=== PATIENT | female | born 1980 | race Asian ===

== ENCOUNTER 2017-03-11 17:01 | Inpatient (IN) | payer MEDICAID ==
[~2017-03-11 17:01] MED LIST: ATOR20TA86 PO; BENZ1TAB10 PO; FENO160 PO; LISI-661 PO; LURA40 PO; METF500T4 PO; SITA100 PO
[2017-03-11] MEDS ORDERED: QUEtiapine FUMARATE 100 MG TABLET PO PRN (17:45)
[2017-03-11] MEDS ORDERED: LORazepam 2 MG/ML VIAL IM ONE (17:45)
[2017-03-11] MEDS ORDERED: LORazepam 2 MG TABLET PO PRN (17:45)
[2017-03-11] MEDS ORDERED: ZOLPIDEM TARTRATE 10 MG TABLET PO PRN (17:45)
[2017-03-11] MEDS ORDERED: DiphenhydrAMINE HCL 50 MG/ML VIAL IM ONE (17:45)
[2017-03-11 18:30] VITALS: BP 114/66
[2017-03-11 20:00] VITALS: BP 100/64
[2017-03-11] MEDS ORDERED: PNEUMOCOCCAL VACCINE POLYVALENT 0.5 ML VIAL [PPSV23] IM ONE (20:00)
[2017-03-11] MEDS ORDERED: GLUCAGON,HUMAN RECOMBINANT 1 MG VIAL IM PRN (20:30)
[2017-03-11] MEDS ORDERED: INSULIN ASPART 100 UNITS/ML SQ PRN (20:30)
[2017-03-11] MEDS: QUEtiapine FUMARATE 200 MG TABLET PO SCH (21:00)
[2017-03-11 21:04] VITALS: BP 103/70
[2017-03-11 22:04] VITALS: BP 101/66
[2017-03-12] VITALS (11 sets, daily range): BP systolic 82–137; BP diastolic 42–92
[2017-03-12] MEDS ORDERED: INSNOV SQ (04:41)
[2017-03-12] MEDS ORDERED: QUET200T PO (04:41)
[2017-03-12] MEDS ORDERED: QUET50TA PO (04:41)
[2017-03-12 07:12] LABS: GLUCOSE,POINT OF CARE 378 MG/DL (70-110)
[2017-03-12] MEDS: MetFORMIN HCL 500 MG TABLET PO SCH ×2 (07:23→17:00)
[2017-03-12] MEDS: QUEtiapine FUMARATE 25 MG TABLET PO SCH ×2 (08:32→17:00)
[2017-03-12] MEDS: LISINOPRIL 10 MG TABLET PO SCH ×2 (08:32→17:00)
[2017-03-12] MEDS ORDERED: SitaGLIPtin PHOSPHATE 100 MG TABLET PO SCH (09:00)
[2017-03-12 13:28] LABS: HEMATOCRIT 33.8 % (36-46); HEMOGLOBIN 12.1 g/dL (12.0-16.0); MEAN CORPUSCULAR HGB CONC 35.9 G/dL (31.0-37.0); MEAN CORPUSCULAR VOLUME 84 fL (80-100); PLATELET COUNT (AUTO) 256 K/uL (150-450); RED BLOOD CELL COUNT(AUTO) 4.05 MIL/uL (4.00-5.20); RED CELL DISTRIBUTION WIDTH 13.5 % (11.5-14.5); WHITE BLOOD COUNT (AUTO) 8.3 K/uL (4.5-11.0)
[2017-03-12 13:47] LABS: ALBUMIN 3.1 g/dL (3.4-5.0); ANION GAP 13 mmol/L (8-16); BILIRUBIN,TOTAL 0.8 mg/dL (0.1-1.0); CALCIUM, TOTAL 8.1 mg/dL (8.8-10.5); CARBON DIOXIDE 23 mmol/L (22-29); CHLORIDE 93 mmol/L (98-107); GLOMERULAR FILTR. RATE CALC > 60 mL/min (>60); POTASSIUM 4.2 mmol/L (3.5-5.1); SODIUM SERUM 129 mmol/L (136-145); THYROID STIMULATING HORMONE 3.63 uIU/mL (0.36-3.74); UREA NITROGEN, BLOOD 18 mg/dL (7-18)
[2017-03-12 13:59] LABS: BAND NEUTROPHILS % (MANUAL) 5 % (1-5); LYMPHOCYTES % (MANUAL) 41 % (22-44); RBC MORPHOLOGY COMMENT NORMAL RBC MORPH; TOTAL CELLS COUNTED 100
[2017-03-12 14:13] LABS: CHOL/HDL RATIO 16.2 (3.9-5.7)
[2017-03-12 14:14] LABS: CREATININE 0.72 mg/dL (0.60-1.30); TOTAL PROTEIN, SERUM 8.1 g/dL (6.4-8.2)
[2017-03-12 14:37] LABS: ASPARTATE AMINOTRANSFERASE 145 U/L (15-37)
[2017-03-12 19:11] LABS: ALANINE AMINOTRANSFERASE 21 U/L (12-78)
[2017-03-12] MEDS ORDERED: FENOFIBRATE 160 MG TABLET PO SCH (21:00)
[2017-03-12] MEDS: QUEtiapine FUMARATE 200 MG TABLET PO SCH (21:00)
[2017-03-12] MEDS ORDERED: ATORVASTATIN CALCIUM 20 MG TABLET PO SCH (21:00)
== END 2017-03-12 21:58 | disposition short-term general hospital (02) | DRG 750 ==
LOC: B3A 17:49
PROVIDERS: ADMIT Psychiatry & Neurology Psychiatry; ATTEND Psychiatry & Neurology Psychiatry
DX: F25.0 Schizoaffective disorder, bipolar type (principal); E11.9 Type 2 diabetes mellitus without complications; I10 Essential (primary) hypertension; F39 Unspecified mood [affective] disorder; E78.1 Pure hyperglyceridemia; E78.5 Hyperlipidemia, unspecified; F79 Unspecified intellectual disabilities; Z91.19 Patient's noncompliance with other medical treatment and regimen; Z88.5 Allergy status to narcotic agent; Z79.899 Other long term (current) drug therapy; Z79.84 Long term (current) use of oral hypoglycemic drugs; Z23 Encounter for immunization
CPT/HCPCS: 82962; 83036; 84439; 84443; J1200; J2060; J3230

== ENCOUNTER 2017-03-12 04:08 | Emergency (ER) | payer MEDICAID, OTHER ==
[~2017-03-12] VITALS: Ht 149.9 cm; Wt 63.0 kg
[2017-03-12] MEDS ORDERED: QUET200T PO (04:41)
[2017-03-12] MEDS ORDERED: INSNOV SQ (04:41)
[2017-03-12] MEDS ORDERED: QUET50TA PO (04:41)
[2017-03-12 04:52] LABS: GLUCOSE,POINT OF CARE 389 MG/DL (70-110)
[2017-03-12 06:26] VITALS: BP 114/65
== END 2017-03-12 06:32 | disposition home or self-care (01) ==
LOC: EMS 04:11
DX: S80.02XA Contusion of left knee, initial encounter (principal); Z88.6 Allergy status to analgesic agent; W06.XXXA Fall from bed, initial encounter; Y93.89 Activity, other specified; Y92.89 Other specified places as the place of occurrence of the external cause; Y99.8 Other external cause status
CPT/HCPCS: 82962; 99284

== ENCOUNTER 2017-03-12 12:04 | Inpatient (IN) | payer OTHER ==
[~2017-03-12] VITALS: Ht 162.6 cm; Wt 63.7 kg
[~2017-03-12 12:04] MED LIST changes: +INSNOV SQ; +QUET200T PO; +QUET50TA PO
[2017-03-12 14:50] LABS: B-TYPE NATRIURETIC PEPTIDE 10 pg/mL (0-100)
[2017-03-12 14:51] LABS: APPEARANCE,URINE CLEAR (CLEAR); GLUCOSE, URINE (UA) >=1000 mg/dL (NEGATIVE); KETONES,URINE TRACE mg/dL (NEGATIVE); LEUKOCYTE ESTERASE ,URINE NEGATIVE (NEGATIVE); OCCULT BLOOD,URINE NEGATIVE (NEGATIVE); PROTEIN,URINE NEGATIVE (NEGATIVE)
[2017-03-12 14:52] LABS: ADD UA MICROSCOPIC YES
[2017-03-12 14:59] LABS: RBC,URINE None Seen /HPF (0-2); SQUAMOUS EPITHELIAL CELL,UR Rare /LPF (None Seen); WBC,URINE 0-2 /HPF (0-5)
[2017-03-12 15:41] LABS: ANION GAP 11 mmol/L (8-16); CARBON DIOXIDE 27 mmol/L (22-29); CHLORIDE 92 mmol/L (98-107); CREATININE 0.71 mg/dL (0.60-1.30); GLOMERULAR FILTR. RATE CALC > 60 mL/min (>60); POTASSIUM 4.2 mmol/L (3.5-5.1); SODIUM SERUM 130 mmol/L (136-145); UREA NITROGEN, BLOOD 20 mg/dL (7-18)
[2017-03-12 15:42] LABS: ALANINE AMINOTRANSFERASE 26 U/L (12-78); ALBUMIN 3.6 g/dL (3.4-5.0); ASPARTATE AMINOTRANSFERASE 46 U/L (15-37); BILIRUBIN,TOTAL 0.5 mg/dL (0.1-1.0); CALCIUM, TOTAL 8.9 mg/dL (8.8-10.5); TOTAL PROTEIN, SERUM 6.4 g/dL (6.4-8.2)
[2017-03-12] MEDS ORDERED: SODIUM CHLORIDE 0.9% 1,000 ML IV ONE (16:00)
[2017-03-12 16:03] LABS: CREATINE KINASE MB 10.9 ng/mL (0-5); CREATINE KINASE, TOTAL 947 U/L (26-192)
[2017-03-12] MEDS ORDERED: FENOFIBRATE 160 MG TABLET PO ONE (18:30)
[2017-03-12] MEDS ORDERED: GEMFIBROZIL 600 MG TABLET PO ONE (18:30)
[2017-03-12] MEDS ORDERED: ACETAMINOPHEN 325 MG TABLET PO PRN ×2 (18:45→21:45)
[2017-03-12] MEDS ORDERED: FISH OIL/OMEGA-3 FATTY ACIDS 500 MG CAPSULE PO ONE (18:45)
[2017-03-12] MEDS ORDERED: INSULIN REGULAR, HUMAN 100 UNITS/ML IVP ONE (18:45)
[2017-03-12] MEDS ORDERED: 0.9% SODIUM CHLORIDE 10 ML SYRINGE IVP PRN (18:45)
[2017-03-12] MEDS ORDERED: ONDANSETRON HCL 4 MG/2 ML VIAL IVP PRN ×2 (18:45→21:45)
[2017-03-12 19:02] LABS: GLUCOSE,POINT OF CARE 264 MG/DL (70-110)
[2017-03-12 19:56] LABS: CHOL/HDL RATIO 18.2 (3.9-5.7)
[2017-03-12] MEDS ORDERED: ALBUTEROL SULFATE 2.5 MG/0.5 ML NEB SOLUTION NEB PRN (21:45)
[2017-03-12] MEDS ORDERED: DEXTROSE 50%-WATER 25 GM/50 ML SYRINGE IVP PRN (21:45)
[2017-03-12] MEDS ORDERED: BISACODYL 10 MG RECTAL RECTAL SUPPOSITORY PR PRN (21:45)
[2017-03-12] MEDS ORDERED: ZOLPIDEM TARTRATE 5 MG TABLET PO PRN (21:45)
[2017-03-12] MEDS ORDERED: MAGNESIUM SULFATE 4 GM/WATER 100 ML IV PRN (21:45)
[2017-03-12] MEDS ORDERED: MAGNESIUM HYDROXIDE SUSPENSION 30 ML UDCUP PO PRN (21:45)
[2017-03-12] MEDS ORDERED: POTASSIUM CHLORIDE 20 MEQ ER TABLET PO PRN (21:45)
[2017-03-12] MEDS ORDERED: POTASSIUM CHL 10 MEQ/WATER 50 ML IV PRN (21:45)
[2017-03-12] MEDS ORDERED: IPRATROPIUM BROMIDE 0.5 MG/2.5 ML NEB SOLUTION NEB PRN (21:45)
[2017-03-12 22:02] LABS: GLUCOSE,POINT OF CARE 308 MG/DL (70-110)
[2017-03-12] MEDS: INSULIN ASPART 100 UNITS/ML SQ PRN (22:06)
[2017-03-13] VITALS (7 sets, daily range): BP systolic 116–150; BP diastolic 75–107
[2017-03-13] MEDS: INSULIN ASPART 100 UNITS/ML SQ PRN ×3 (06:04→20:09)
[2017-03-13 06:13] LABS: HEMOGLOBIN 10.9 g/dL (12.0-16.0); MEAN CORPUSCULAR HEMOGLOBIN 29.7 pg (26.0-34.0); MEAN CORPUSCULAR HGB CONC 35.1 G/dL (31.0-37.0); MEAN CORPUSCULAR VOLUME 85 fL (80-100); PLATELET COUNT (AUTO) 276 K/uL (150-450); RED BLOOD CELL COUNT(AUTO) 3.66 MIL/uL (4.00-5.20); RED CELL DISTRIBUTION WIDTH 13.6 % (11.5-14.5); WHITE BLOOD COUNT (AUTO) 7.2 K/uL (4.5-11.0)
[2017-03-13 06:52] LABS: ALBUMIN 2.6 g/dL (3.4-5.0); ANION GAP 14 mmol/L (8-16); BILIRUBIN,TOTAL 0.6 mg/dL (0.1-1.0); CALCIUM, TOTAL 7.3 mg/dL (8.8-10.5); CARBON DIOXIDE 19 mmol/L (22-29); CHLORIDE 97 mmol/L (98-107); CREATININE 0.57 mg/dL (0.60-1.30); GLOMERULAR FILTR. RATE CALC > 60 mL/min (>60); POTASSIUM 3.8 mmol/L (3.5-5.1); SODIUM SERUM 130 mmol/L (136-145); UREA NITROGEN, BLOOD 14 mg/dL (7-18)
[2017-03-13 07:12] LABS: GLUCOSE COMMENT 1 Received Meds; GLUCOSE,POINT OF CARE 273 MG/DL (70-110)
[2017-03-13 07:26] LABS: EOSINOPHILS % (MANUAL) 3 % (1-6); LYMPHOCYTES % (MANUAL) 25 % (22-44); TOTAL CELLS COUNTED 100
[2017-03-13 07:29] LABS: ALANINE AMINOTRANSFERASE 20 U/L (12-78); ASPARTATE AMINOTRANSFERASE 29 U/L (15-37); TOTAL PROTEIN, SERUM 5.6 g/dL (6.4-8.2)
[2017-03-13] MEDS: PANTOPRAZOLE SODIUM 40 MG DR TABLET PO SCH (08:45)
[2017-03-13] MEDS: HEPARIN SODIUM,PORCINE 5,000 UNITS/ML VIAL SQ SCH ×2 (08:46→19:58)
[2017-03-13] MEDS: CHOLECALCIFEROL (VIT D3) 1,000 UNITS TABLET PO SCH (08:46)
[2017-03-13] MEDS: MetFORMIN HCL 500 MG TABLET PO SCH ×3 (08:46→20:25)
[2017-03-13] MEDS ORDERED: LISINOPRIL 10 MG TABLET PO SCH (09:00)
[2017-03-13] MEDS ORDERED: FISH OIL/OMEGA-3 FATTY ACIDS 500 MG CAPSULE PO SCH ×2 (09:00→21:00)
[2017-03-13 09:14] LABS: CHOL/HDL RATIO 13.5 (3.9-5.7)
[2017-03-13] MEDS: POTASSIUM CHLORIDE 20 MEQ ER TABLET PO PRN (12:13)
[2017-03-13] MEDS: MAGNESIUM SULFATE 2 GM in DEXTROSE 5%-WATER 50 ML IV PRN (13:35)
[2017-03-13] MEDS ORDERED: QUEtiapine FUMARATE 100 MG TABLET PO PRN (18:45)
[2017-03-13] MEDS ORDERED: LORazepam 2 MG/ML VIAL IM PRN (18:45)
[2017-03-13] MEDS ORDERED: ZOLPIDEM TARTRATE 5 MG TABLET PO PRN (18:45)
[2017-03-13] MEDS: ATORVASTATIN CALCIUM 20 MG TABLET PO SCH (19:55)
[2017-03-13] MEDS: FENOFIBRATE 160 MG TABLET PO SCH (19:55)
[2017-03-13] MEDS: FISH OIL/OMEGA-3 FATTY ACIDS 500 MG CAPSULE PO SCH (19:57)
[2017-03-14 00:12] VITALS: BP 118/79
[2017-03-14 04:23] VITALS: BP 135/87
[2017-03-14] MEDS: INSULIN ASPART 100 UNITS/ML SQ PRN ×3 (06:28→18:42)
[2017-03-14 07:33] LABS: HEMOGLOBIN 12.1 g/dL (12.0-16.0); MEAN CORPUSCULAR HEMOGLOBIN 29.7 pg (26.0-34.0); MEAN CORPUSCULAR HGB CONC 35.5 G/dL (31.0-37.0); MEAN CORPUSCULAR VOLUME 84 fL (80-100); PLATELET COUNT (AUTO) 272 K/uL (150-450); RED BLOOD CELL COUNT(AUTO) 4.07 MIL/uL (4.00-5.20); RED CELL DISTRIBUTION WIDTH 13.4 % (11.5-14.5); WHITE BLOOD COUNT (AUTO) 5.8 K/uL (4.5-11.0)
[2017-03-14 07:38] VITALS: BP 125/95
[2017-03-14 07:48] LABS: ALBUMIN 3.2 g/dL (3.4-5.0); ANION GAP 16 mmol/L (8-16); BILIRUBIN,TOTAL 0.6 mg/dL (0.1-1.0); CALCIUM, TOTAL 8.3 mg/dL (8.8-10.5); CARBON DIOXIDE 19 mmol/L (22-29); CHLORIDE 96 mmol/L (98-107); CREATININE 0.69 mg/dL (0.60-1.30); GLOMERULAR FILTR. RATE CALC > 60 mL/min (>60); POTASSIUM 3.9 mmol/L (3.5-5.1); SODIUM SERUM 131 mmol/L (136-145); TOTAL PROTEIN, SERUM 7.7 g/dL (6.4-8.2); UREA NITROGEN, BLOOD 12 mg/dL (7-18)
[2017-03-14 08:07] LABS: ASPARTATE AMINOTRANSFERASE 16 U/L (15-37)
[2017-03-14] MEDS: CHOLECALCIFEROL (VIT D3) 1,000 UNITS TABLET PO SCH (08:43)
[2017-03-14] MEDS: FISH OIL/OMEGA-3 FATTY ACIDS 500 MG CAPSULE PO SCH ×2 (08:43→20:24)
[2017-03-14] MEDS: PANTOPRAZOLE SODIUM 40 MG DR TABLET PO SCH (08:43)
[2017-03-14] MEDS: HEPARIN SODIUM,PORCINE 5,000 UNITS/ML VIAL SQ SCH ×2 (08:44→20:29)
[2017-03-14 08:56] LABS: EOSINOPHILS % (MANUAL) 2 % (1-6); LYMPHOCYTES % (MANUAL) 26 % (22-44); TOTAL CELLS COUNTED 100
[2017-03-14 08:58] LABS: RBC MORPHOLOGY COMMENT NORMAL RBC MORPH
[2017-03-14 10:00] LABS: ALANINE AMINOTRANSFERASE 25 U/L (12-78)
[2017-03-14] MEDS: POTASSIUM CHLORIDE 20 MEQ ER TABLET PO PRN (10:33)
[2017-03-14 11:26] VITALS: BP 156/94
[2017-03-14] MEDS: MAGNESIUM SULFATE 2 GM in DEXTROSE 5%-WATER 50 ML IV PRN (12:47)
[2017-03-14 15:38] VITALS: BP 107/71
[2017-03-14] MEDS: MetFORMIN HCL 500 MG TABLET PO SCH (18:37)
[2017-03-14 19:33] VITALS: BP 139/89
[2017-03-14] MEDS: FENOFIBRATE 160 MG TABLET PO SCH (20:24)
[2017-03-14] MEDS: ATORVASTATIN CALCIUM 20 MG TABLET PO SCH (20:24)
[2017-03-14] MEDS ORDERED: ARIPiprazole 5 MG TABLET PO SCH (21:00)
[2017-03-15] VITALS (7 sets, daily range): BP systolic 105–140; BP diastolic 64–88
[2017-03-15] MEDS: FISH OIL/OMEGA-3 FATTY ACIDS 500 MG CAPSULE PO SCH ×2 (08:01→21:30)
[2017-03-15] MEDS: HEPARIN SODIUM,PORCINE 5,000 UNITS/ML VIAL SQ SCH ×2 (08:01→21:31)
[2017-03-15] MEDS: CHOLECALCIFEROL (VIT D3) 1,000 UNITS TABLET PO SCH (08:01)
[2017-03-15] MEDS: PANTOPRAZOLE SODIUM 40 MG DR TABLET PO SCH (08:01)
[2017-03-15] MEDS: MetFORMIN HCL 500 MG TABLET PO SCH ×2 (08:02→18:22)
[2017-03-15 08:55] LABS: MAGNESIUM 1.7 mg/dL (1.80-2.40); POTASSIUM 4.2 mmol/L (3.5-5.1)
[2017-03-15] MEDS ORDERED: ARIPiprazole 5 MG TABLET PO SCH (09:00)
[2017-03-15] MEDS: INSULIN ASPART 100 UNITS/ML SQ PRN ×2 (11:57→17:49)
[2017-03-15 12:57] LABS: GLUCOSE COMMENT 1 Received Meds; GLUCOSE,POINT OF CARE 261 MG/DL (70-110)
[2017-03-15 12:57] LABS: GLUCOSE COMMENT 1 Received Meds; GLUCOSE,POINT OF CARE 384 MG/DL (70-110)
[2017-03-15 13:07] LABS: GLUCOSE COMMENT 1 Received Meds; GLUCOSE,POINT OF CARE 275 MG/DL (70-110)
[2017-03-15 13:07] LABS: GLUCOSE,POINT OF CARE 259 MG/DL (70-110)
[2017-03-15] MEDS: MAGNESIUM OXIDE 400 MG TABLET PO PRN (13:45)
[2017-03-15] MEDS ORDERED: QUEtiapine FUMARATE 100 MG TABLET PO PRN (20:00)
[2017-03-15] MEDS ORDERED: INSULIN ASPART 100 UNITS/ML SQ PRN (20:00)
[2017-03-15] MEDS ORDERED: ARIPiprazole 10 MG TABLET PO SCH (21:00)
[2017-03-15] MEDS ORDERED: QUEtiapine FUMARATE 200 MG TABLET PO SCH (21:00)
[2017-03-15] MEDS ORDERED: TraZODone HCL 100 MG TABLET PO SCH (21:00)
[2017-03-15] MEDS: FENOFIBRATE 160 MG TABLET PO SCH (21:30)
[2017-03-15] MEDS: ATORVASTATIN CALCIUM 20 MG TABLET PO SCH (21:30)
[2017-03-16] MEDS: MAGNESIUM OXIDE 400 MG TABLET PO PRN (00:22)
[2017-03-16] MEDS: INSULIN ASPART 100 UNITS/ML SQ PRN (00:36)
[2017-03-16] MEDS ORDERED: SitaGLIPtin PHOSPHATE 100 MG TABLET PO SCH (09:00)
== END 2017-03-16 00:30 | DRG 207 ==
LOC: EMS 12:06 → 5S 22:58
PROVIDERS: ADMIT Internal Medicine; ATTEND Internal Medicine
DX: I95.9 Hypotension, unspecified (principal); E11.65 Type 2 diabetes mellitus with hyperglycemia; I10 Essential (primary) hypertension; E55.9 Vitamin D deficiency, unspecified; E87.1 Hypo-osmolality and hyponatremia; E78.1 Pure hyperglyceridemia; K21.9 Gastro-esophageal reflux disease without esophagitis; L30.9 Dermatitis, unspecified; K59.00 Constipation, unspecified; F41.9 Anxiety disorder, unspecified; F25.0 Schizoaffective disorder, bipolar type; F32.9 Major depressive disorder, single episode, unspecified; E78.5 Hyperlipidemia, unspecified; D64.9 Anemia, unspecified; Z79.899 Other long term (current) drug therapy; Z79.84 Long term (current) use of oral hypoglycemic drugs; Z79.4 Long term (current) use of insulin; Z88.6 Allergy status to analgesic agent; Z56.0 Unemployment, unspecified; Z91.14 Patient's other noncompliance with medication regimen; R00.0 Tachycardia, unspecified
CPT/HCPCS: 82962; 83605; 83735; 84132; 84478; 87081; 93005; 93306; 96360; 99285; G0480; J1644; J1815; J3475; J7030; J7060

== ENCOUNTER 2017-03-16 00:30 | Inpatient (IN) | payer MEDICAID ==
[~2017-03-16] VITALS: Ht 162.6 cm; Wt 62.7 kg
[~2017-03-16 00:30] MED LIST changes: -BENZ1TAB10 PO; -LURA40 PO
[2017-03-16 01:59] VITALS: BP 98/70
[2017-03-16] MEDS ORDERED: -PHARMACY VACCINE NOTE- MISC ONE ×2 (02:30)
[2017-03-16] MEDS ORDERED: PNEUMOCOCCAL VACCINE POLYVALENT 0.5 ML VIAL [PPSV23] IM ONE (02:30)
[2017-03-16 06:41] LABS: GLUCOSE,POINT OF CARE 233 MG/DL (70-110)
[2017-03-16 06:44] LABS: BASOPHILS % (AUTO) 0.1 % (0.0-2.0); EOSINOPHILS % (AUTO) 2.6 % (1.0-6.0); HEMATOCRIT 35.6 % (36-46); HEMOGLOBIN 11.7 g/dL (12.0-16.0); LYMPHOCYTES # (AUTO) 1.8 K/uL (1.0-4.8); LYMPHOCYTES % (AUTO) 24.8 % (22.0-44.0); MEAN CORPUSCULAR HGB CONC 32.9 G/dL (31.0-37.0); MEAN CORPUSCULAR VOLUME 85 fL (80-100); MONOCYTES # (AUTO) 0.4 K/uL (0.1-1.0); MONOCYTES % (AUTO) 5.4 % (2.0-9.0); NEUTROPHILS # (AUTO) 4.8 K/uL (1.8-7.7); NEUTROPHILS % (AUTO) 67.1 % (40.0-70.0); PLATELET COUNT (AUTO) 266 K/uL (150-450); RED BLOOD CELL COUNT(AUTO) 4.19 MIL/uL (4.00-5.20); RED CELL DISTRIBUTION WIDTH 13.6 % (11.5-14.5); WHITE BLOOD COUNT (AUTO) 7.2 K/uL (4.5-11.0)
[2017-03-16 06:57] LABS: ALANINE AMINOTRANSFERASE 25 U/L (12-78); ALBUMIN 3.4 g/dL (3.4-5.0); ANION GAP 9 mmol/L (8-16); BILIRUBIN,TOTAL 0.5 mg/dL (0.1-1.0); CALCIUM, TOTAL 8.8 mg/dL (8.8-10.5); CARBON DIOXIDE 27 mmol/L (22-29); CHLORIDE 93 mmol/L (98-107); CREATININE 0.87 mg/dL (0.60-1.30); GLOMERULAR FILTR. RATE CALC > 60 mL/min (>60); POTASSIUM 4.6 mmol/L (3.5-5.1); SODIUM SERUM 129 mmol/L (136-145); TOTAL PROTEIN, SERUM 7.3 g/dL (6.4-8.2); UREA NITROGEN, BLOOD 20 mg/dL (7-18)
[2017-03-16 08:01] VITALS: BP 100/65
[2017-03-16 08:16] LABS: ASPARTATE AMINOTRANSFERASE 22 U/L (15-37)
[2017-03-16] MEDS: LORazepam 2 MG TABLET PO PRN ×2 (08:25→18:41)
[2017-03-16] MEDS: ARIPiprazole 5 MG TABLET PO SCH (09:00)
[2017-03-16] MEDS ORDERED: MAG HYDROX/AL HYDROX/SIMETH ES 30 ML SUSPENSION UDCUP PO PRN (09:15)
[2017-03-16] MEDS ORDERED: DEXTROSE 50%-WATER 25 GM/50 ML SYRINGE IVP PRN (09:15)
[2017-03-16] MEDS ORDERED: MAGNESIUM HYDROXIDE SUSPENSION 30 ML UDCUP PO PRN (09:15)
[2017-03-16] MEDS ORDERED: IBUPROFEN 600 MG TABLET PO PRN (09:15)
[2017-03-16] MEDS ORDERED: PETROLATUM,WHITE 71 GM JELLY TP PRN (09:15)
[2017-03-16] MEDS ORDERED: BACITRACIN 28.4 GM OINTMENT TP PRN (09:15)
[2017-03-16] MEDS ORDERED: CloNIDine HCL 0.1 MG TABLET PO PRN (09:15)
[2017-03-16] MEDS ORDERED: ACETAMINOPHEN 325 MG TABLET PO PRN (09:15)
[2017-03-16] MEDS ORDERED: BENZOCAINE/MENTHOL LOZENGE MM PRN (09:15)
[2017-03-16] MEDS ORDERED: ONDANSETRON HCL 4 MG TABLET PO PRN (09:15)
[2017-03-16] MEDS ORDERED: ALBUTEROL SULFATE HFA 90 MCG/PUFF 8 GM INHALER IH PRN (09:15)
[2017-03-16] MEDS ORDERED: BENZOCAINE/MENTHOL LOZENGE [8 LOZENGES/PACKET] MM PRN (09:30)
[2017-03-16] MEDS: INSULIN ASPART 100 UNITS/ML SQ PRN ×2 (12:44→17:16)
[2017-03-16 16:00] VITALS: BP 106/75
[2017-03-16 17:12] LABS: GLUCOSE,POINT OF CARE 200 MG/DL (70-110)
[2017-03-16] MEDS: MetFORMIN HCL 500 MG TABLET PO SCH (17:43)
[2017-03-16 18:03] LABS: GLUCOSE,POINT OF CARE 281 MG/DL (70-110)
[2017-03-16 18:03] LABS: GLUCOSE,POINT OF CARE 219 MG/DL (70-110)
[2017-03-16] MEDS: QUEtiapine FUMARATE 100 MG TABLET PO PRN (18:41)
[2017-03-16] MEDS: TraZODone HCL 100 MG TABLET PO SCH (21:00)
[2017-03-16] MEDS: ATORVASTATIN CALCIUM 20 MG TABLET PO SCH (21:00)
[2017-03-16] MEDS: FENOFIBRATE 160 MG TABLET PO SCH (21:00)
[2017-03-16] MEDS: ARIPiprazole 10 MG TABLET PO SCH (21:00)
[2017-03-16] MEDS: QUEtiapine FUMARATE 200 MG TABLET PO SCH (22:16)
[2017-03-17 02:00] VITALS: BP 105/73
[2017-03-17 05:53] LABS: GLUCOSE,POINT OF CARE 241 MG/DL (70-110)
[2017-03-17 06:38] LABS: ANION GAP 10 mmol/L (8-16); CARBON DIOXIDE 27 mmol/L (22-29); CHLORIDE 93 mmol/L (98-107); CREATININE 0.79 mg/dL (0.60-1.30); GLOMERULAR FILTR. RATE CALC > 60 mL/min (>60); POTASSIUM 3.9 mmol/L (3.5-5.1); SODIUM SERUM 130 mmol/L (136-145); UREA NITROGEN, BLOOD 21 mg/dL (7-18)
[2017-03-17] MEDS: MetFORMIN HCL 500 MG TABLET PO SCH ×2 (07:03→17:05)
[2017-03-17] MEDS: INSULIN ASPART 100 UNITS/ML SQ PRN ×4 (07:05→20:33)
[2017-03-17] MEDS: LORazepam 2 MG TABLET PO PRN (08:09)
[2017-03-17] MEDS: QUEtiapine FUMARATE 100 MG TABLET PO PRN (08:09)
[2017-03-17] MEDS: ARIPiprazole 5 MG TABLET PO SCH (08:09)
[2017-03-17 10:07] VITALS: BP 114/75
[2017-03-17 13:06] LABS: GLUCOSE,POINT OF CARE 191 MG/DL (70-110)
[2017-03-17 16:05] VITALS: BP 112/78
[2017-03-17 17:07] LABS: GLUCOSE COMMENT 1 Received Meds; GLUCOSE,POINT OF CARE 186 MG/DL (70-110)
[2017-03-17] MEDS: TraZODone HCL 100 MG TABLET PO SCH (20:38)
[2017-03-17] MEDS: ATORVASTATIN CALCIUM 20 MG TABLET PO SCH (20:38)
[2017-03-17] MEDS: QUEtiapine FUMARATE 200 MG TABLET PO SCH (20:38)
[2017-03-17] MEDS: ARIPiprazole 10 MG TABLET PO SCH (20:38)
[2017-03-17] MEDS: FENOFIBRATE 160 MG TABLET PO SCH (20:39)
[2017-03-17 20:42] LABS: GLUCOSE COMMENT 1 Received Meds; GLUCOSE,POINT OF CARE 314 MG/DL (70-110)
[2017-03-17] MEDS: ZOLPIDEM TARTRATE 10 MG TABLET PO PRN (23:34)
[2017-03-18 01:18] VITALS: BP 122/75
[2017-03-18 05:46] LABS: GLUCOSE,POINT OF CARE 203 MG/DL (70-110)
[2017-03-18] MEDS: MetFORMIN HCL 500 MG TABLET PO SCH ×2 (06:41→17:24)
[2017-03-18] MEDS: INSULIN ASPART 100 UNITS/ML SQ PRN ×4 (06:45→21:18)
[2017-03-18 08:15] VITALS: BP 126/83
[2017-03-18] MEDS: LORazepam 2 MG TABLET PO PRN (08:33)
[2017-03-18] MEDS: QUEtiapine FUMARATE 100 MG TABLET PO PRN (08:33)
[2017-03-18] MEDS: ARIPiprazole 5 MG TABLET PO SCH (08:33)
[2017-03-18 11:58] LABS: GLUCOSE,POINT OF CARE 193 MG/DL (70-110)
[2017-03-18 16:12] VITALS: BP 124/82
[2017-03-18 17:27] LABS: GLUCOSE COMMENT 1 Received Meds; GLUCOSE,POINT OF CARE 283 MG/DL (70-110)
[2017-03-18] MEDS: TraZODone HCL 100 MG TABLET PO SCH (20:17)
[2017-03-18] MEDS: FENOFIBRATE 160 MG TABLET PO SCH (20:17)
[2017-03-18] MEDS: ATORVASTATIN CALCIUM 20 MG TABLET PO SCH (20:17)
[2017-03-18] MEDS: ARIPiprazole 10 MG TABLET PO SCH (20:17)
[2017-03-18 21:16] LABS: GLUCOSE COMMENT 1 Received Meds; GLUCOSE,POINT OF CARE 342 MG/DL (70-110)
[2017-03-19 05:58] LABS: GLUCOSE,POINT OF CARE 264 MG/DL (70-110)
[2017-03-19 06:40] VITALS: BP 120/0
[2017-03-19] MEDS: MetFORMIN HCL 500 MG TABLET PO SCH ×2 (06:50→16:40)
[2017-03-19] MEDS: INSULIN ASPART 100 UNITS/ML SQ PRN ×3 (06:54→17:36)
[2017-03-19] MEDS: ARIPiprazole 5 MG TABLET PO SCH (07:56)
[2017-03-19] MEDS: LORazepam 2 MG TABLET PO PRN (07:56)
[2017-03-19 08:32] VITALS: BP 142/81
[2017-03-19] MEDS: LOPERAMIDE HCL 2 MG CAPSULE PO PRN (08:48)
[2017-03-19 11:42] LABS: GLUCOSE,POINT OF CARE 232 MG/DL (70-110)
[2017-03-19 16:02] VITALS: BP 110/70
[2017-03-19 16:48] LABS: GLUCOSE COMMENT 1 Received Meds; GLUCOSE,POINT OF CARE 321 MG/DL (70-110)
[2017-03-19] MEDS: FENOFIBRATE 160 MG TABLET PO SCH (20:17)
[2017-03-19] MEDS: TraZODone HCL 150 MG TABLET PO SCH (20:17)
[2017-03-19] MEDS: ARIPiprazole 10 MG TABLET PO SCH (20:17)
[2017-03-19] MEDS: ATORVASTATIN CALCIUM 20 MG TABLET PO SCH (20:17)
[2017-03-19 21:57] LABS: GLUCOSE COMMENT 1 Received Meds; GLUCOSE,POINT OF CARE 248 MG/DL (70-110)
[2017-03-20 04:58] VITALS: BP 123/79
[2017-03-20 05:16] LABS: GLUCOSE,POINT OF CARE 233 MG/DL (70-110)
[2017-03-20] MEDS: FERROUS SULFATE 325 MG EC TABLET PO SCH ×2 (07:04→16:14)
[2017-03-20] MEDS: MetFORMIN HCL 500 MG TABLET PO SCH ×2 (07:04→16:14)
[2017-03-20] MEDS: INSULIN ASPART 100 UNITS/ML SQ PRN ×4 (07:07→21:15)
[2017-03-20] MEDS: QUEtiapine FUMARATE 100 MG TABLET PO PRN (08:21)
[2017-03-20] MEDS: LORazepam 2 MG TABLET PO PRN (08:21)
[2017-03-20] MEDS: ARIPiprazole 5 MG TABLET PO SCH (08:22)
[2017-03-20 09:10] VITALS: BP 142/93
[2017-03-20 11:43] LABS: GLUCOSE,POINT OF CARE 286 MG/DL (70-110)
[2017-03-20 17:05] VITALS: BP 105/66
[2017-03-20] MEDS: ATORVASTATIN CALCIUM 20 MG TABLET PO SCH (20:22)
[2017-03-20] MEDS: FENOFIBRATE 160 MG TABLET PO SCH (20:22)
[2017-03-20] MEDS: TraZODone HCL 150 MG TABLET PO SCH (20:22)
[2017-03-20] MEDS: ARIPiprazole 10 MG TABLET PO SCH (20:22)
[2017-03-20 21:17] LABS: GLUCOSE,POINT OF CARE 287 MG/DL (70-110)
[2017-03-20] MEDS: ZOLPIDEM TARTRATE 10 MG TABLET PO PRN (21:21)
[2017-03-21 05:53] LABS: GLUCOSE,POINT OF CARE 240 MG/DL (70-110)
[2017-03-21] MEDS: QUEtiapine FUMARATE 100 MG TABLET PO PRN (05:55)
[2017-03-21 06:44] VITALS: BP 126/78
[2017-03-21] MEDS: FERROUS SULFATE 325 MG EC TABLET PO SCH ×2 (07:05→17:51)
[2017-03-21] MEDS: MetFORMIN HCL 500 MG TABLET PO SCH ×2 (07:05→17:51)
[2017-03-21] MEDS: INSULIN ASPART 100 UNITS/ML SQ PRN ×4 (07:07→21:45)
[2017-03-21] MEDS: LORazepam 2 MG TABLET PO PRN (07:54)
[2017-03-21 08:00] VITALS: BP_DIAS 102
[2017-03-21 09:02] LABS: GLUCOSE,POINT OF CARE 330 MG/DL (70-110)
[2017-03-21 11:17] LABS: GLUCOSE,POINT OF CARE 244 MG/DL (70-110)
[2017-03-21 16:37] VITALS: BP 127/74
[2017-03-21 17:36] LABS: GLUCOSE COMMENT 1 FASTING; GLUCOSE,POINT OF CARE 199 MG/DL (70-110)
[2017-03-21] MEDS: FENOFIBRATE 160 MG TABLET PO SCH (20:46)
[2017-03-21] MEDS: TraZODone HCL 150 MG TABLET PO SCH (20:46)
[2017-03-21] MEDS: ATORVASTATIN CALCIUM 20 MG TABLET PO SCH (20:46)
[2017-03-21] MEDS: ARIPiprazole 10 MG TABLET PO SCH (20:46)
[2017-03-22 05:27] VITALS: BP 125/82
[2017-03-22 06:37] LABS: GLUCOSE,POINT OF CARE 194 MG/DL (70-110)
[2017-03-22] MEDS: FERROUS SULFATE 325 MG EC TABLET PO SCH ×2 (06:57→17:11)
[2017-03-22] MEDS: MetFORMIN HCL 500 MG TABLET PO SCH ×2 (06:57→17:11)
[2017-03-22] MEDS: INSULIN ASPART 100 UNITS/ML SQ PRN ×4 (07:01→21:32)
[2017-03-22 08:00] VITALS: BP 140/88
[2017-03-22] MEDS: QUEtiapine FUMARATE 100 MG TABLET PO PRN (08:28)
[2017-03-22 10:57] LABS: GLUCOSE,POINT OF CARE 316 MG/DL (70-110)
[2017-03-22] MEDS: LORazepam 2 MG TABLET PO PRN (12:28)
[2017-03-22 16:23] VITALS: BP 115/77
[2017-03-22 17:17] LABS: GLUCOSE COMMENT 1 Received Meds; GLUCOSE,POINT OF CARE 209 MG/DL (70-110)
[2017-03-22] MEDS: FENOFIBRATE 160 MG TABLET PO SCH (20:38)
[2017-03-22] MEDS: ARIPiprazole 10 MG TABLET PO SCH (20:38)
[2017-03-22] MEDS: TraZODone HCL 150 MG TABLET PO SCH (20:38)
[2017-03-22] MEDS: ATORVASTATIN CALCIUM 20 MG TABLET PO SCH (20:38)
[2017-03-22 20:51] LABS: GLUCOSE COMMENT 1 Received Meds; GLUCOSE,POINT OF CARE 236 MG/DL (70-110)
[2017-03-23 05:34] VITALS: BP 125/81
[2017-03-23 06:17] LABS: GLUCOSE,POINT OF CARE 238 MG/DL (70-110)
[2017-03-23 06:48] LABS: ANION GAP 10 mmol/L (8-16); CALCIUM, TOTAL 8.9 mg/dL (8.8-10.5); CARBON DIOXIDE 27 mmol/L (22-29); CHLORIDE 99 mmol/L (98-107); CREATININE 0.81 mg/dL (0.60-1.30); GLOMERULAR FILTR. RATE CALC > 60 mL/min (>60); POTASSIUM 4.2 mmol/L (3.5-5.1); SODIUM SERUM 136 mmol/L (136-145); UREA NITROGEN, BLOOD 15 mg/dL (7-18)
[2017-03-23] MEDS: FERROUS SULFATE 325 MG EC TABLET PO SCH ×2 (06:52→17:38)
[2017-03-23] MEDS: MetFORMIN HCL 500 MG TABLET PO SCH ×2 (06:52→17:38)
[2017-03-23] MEDS: INSULIN ASPART 100 UNITS/ML SQ PRN ×4 (06:53→21:53)
[2017-03-23] MEDS: QUEtiapine FUMARATE 100 MG TABLET PO PRN ×2 (07:57→11:57)
[2017-03-23 08:23] VITALS: BP 127/85
[2017-03-23 11:12] LABS: GLUCOSE,POINT OF CARE 233 MG/DL (70-110)
[2017-03-23] MEDS: LORazepam 2 MG TABLET PO PRN (11:57)
[2017-03-23 16:14] VITALS: BP 115/70
[2017-03-23] MEDS: ARIPiprazole 10 MG TABLET PO SCH (21:46)
[2017-03-23] MEDS: FENOFIBRATE 160 MG TABLET PO SCH (21:46)
[2017-03-23] MEDS: ATORVASTATIN CALCIUM 20 MG TABLET PO SCH (21:46)
[2017-03-23] MEDS: TraZODone HCL 150 MG TABLET PO SCH (21:47)
[2017-03-23 21:57] LABS: GLUCOSE COMMENT 1 FASTING; GLUCOSE,POINT OF CARE 298 MG/DL (70-110)
[2017-03-24 05:04] VITALS: BP 151/93
[2017-03-24 06:12] LABS: GLUCOSE,POINT OF CARE 272 MG/DL (70-110)
[2017-03-24] MEDS: FERROUS SULFATE 325 MG EC TABLET PO SCH ×2 (06:34→17:32)
[2017-03-24] MEDS: INSULIN ASPART 100 UNITS/ML SQ PRN ×4 (06:34→20:15)
[2017-03-24] MEDS: MetFORMIN HCL 500 MG TABLET PO SCH ×2 (06:34→17:32)
[2017-03-24] MEDS: QUEtiapine FUMARATE 100 MG TABLET PO PRN (07:49)
[2017-03-24] MEDS: LORazepam 2 MG TABLET PO PRN (07:49)
[2017-03-24 08:00] VITALS: BP 149/97
[2017-03-24 12:27] LABS: GLUCOSE,POINT OF CARE 174 MG/DL (70-110)
[2017-03-24 16:24] VITALS: BP 128/86
[2017-03-24] MEDS ORDERED: FERROUS SULFATE 325 MG EC TABLET PO SCH (17:30)
[2017-03-24 17:41] LABS: GLUCOSE COMMENT 1 Received Meds; GLUCOSE,POINT OF CARE 271 MG/DL (70-110)
[2017-03-24 20:17] LABS: GLUCOSE COMMENT 1 Received Meds; GLUCOSE,POINT OF CARE 334 MG/DL (70-110)
[2017-03-24] MEDS: ARIPiprazole 10 MG TABLET PO SCH (20:19)
[2017-03-24] MEDS: TraZODone HCL 100 MG TABLET PO SCH (20:19)
[2017-03-24] MEDS: ATORVASTATIN CALCIUM 20 MG TABLET PO SCH (20:19)
[2017-03-24] MEDS: FENOFIBRATE 160 MG TABLET PO SCH (20:19)
[2017-03-25 04:11] VITALS: BP 109/75
[2017-03-25 06:22] LABS: GLUCOSE,POINT OF CARE 216 MG/DL (70-110)
[2017-03-25] MEDS: FERROUS SULFATE 325 MG EC TABLET PO SCH ×2 (06:43→17:29)
[2017-03-25] MEDS: MetFORMIN HCL 500 MG TABLET PO SCH ×2 (06:43→17:29)
[2017-03-25] MEDS: INSULIN ASPART 100 UNITS/ML SQ PRN ×4 (06:45→20:53)
[2017-03-25] MEDS: LORazepam 2 MG TABLET PO PRN (07:48)
[2017-03-25] MEDS: QUEtiapine FUMARATE 100 MG TABLET PO PRN (07:48)
[2017-03-25 08:10] VITALS: BP 104/72
[2017-03-25 11:57] LABS: GLUCOSE,POINT OF CARE 151 MG/DL (70-110)
[2017-03-25 16:13] VITALS: BP 115/78
[2017-03-25] MEDS: ATORVASTATIN CALCIUM 20 MG TABLET PO SCH (20:22)
[2017-03-25] MEDS: ARIPiprazole 10 MG TABLET PO SCH (20:22)
[2017-03-25] MEDS: TraZODone HCL 100 MG TABLET PO SCH (20:22)
[2017-03-25] MEDS: FENOFIBRATE 160 MG TABLET PO SCH (20:22)
[2017-03-25] MEDS ORDERED: ARIPiprazole 5 MG TABLET PO ONE (20:30)
[2017-03-26 01:00] VITALS: BP 108/72
[2017-03-26] MEDS: ZOLPIDEM TARTRATE 10 MG TABLET PO PRN ×2 (01:02→21:33)
[2017-03-26 05:27] LABS: GLUCOSE,POINT OF CARE 215 MG/DL (70-110)
[2017-03-26] MEDS: MetFORMIN HCL 500 MG TABLET PO SCH ×2 (07:03→16:26)
[2017-03-26] MEDS: FERROUS SULFATE 325 MG EC TABLET PO SCH ×2 (07:03→16:26)
[2017-03-26] MEDS: INSULIN ASPART 100 UNITS/ML SQ PRN ×4 (07:05→20:46)
[2017-03-26 10:10] VITALS: BP 106/70
[2017-03-26 11:57] LABS: GLUCOSE,POINT OF CARE 174 MG/DL (70-110)
[2017-03-26 16:42] VITALS: BP 119/73
[2017-03-26 17:12] LABS: GLUCOSE,POINT OF CARE 230 MG/DL (70-110)
[2017-03-26 17:12] LABS: GLUCOSE COMMENT 1 FASTING; GLUCOSE,POINT OF CARE 219 MG/DL (70-110)
[2017-03-26 17:12] LABS: GLUCOSE COMMENT 1 Received Meds; GLUCOSE,POINT OF CARE 249 MG/DL (70-110)
[2017-03-26 17:12] LABS: GLUCOSE COMMENT 1 Received Meds; GLUCOSE,POINT OF CARE 340 MG/DL (70-110)
[2017-03-26] MEDS: ATORVASTATIN CALCIUM 20 MG TABLET PO SCH (20:20)
[2017-03-26] MEDS: TraZODone HCL 100 MG TABLET PO SCH (20:20)
[2017-03-26] MEDS: FENOFIBRATE 160 MG TABLET PO SCH (20:29)
[2017-03-26 20:47] LABS: GLUCOSE COMMENT 1 Received Meds; GLUCOSE,POINT OF CARE 251 MG/DL (70-110)
[2017-03-26] MEDS ORDERED: ARIPiprazole 15 MG TABLET PO SCH (21:00)
[2017-03-27 05:59] VITALS: BP 125/76
[2017-03-27 06:22] LABS: GLUCOSE,POINT OF CARE 216 MG/DL (70-110)
[2017-03-27] MEDS: FERROUS SULFATE 325 MG EC TABLET PO SCH ×2 (06:40→17:20)
[2017-03-27] MEDS: MetFORMIN HCL 500 MG TABLET PO SCH ×2 (06:40→17:20)
[2017-03-27] MEDS: INSULIN ASPART 100 UNITS/ML SQ PRN ×4 (07:24→21:30)
[2017-03-27] MEDS: QUEtiapine FUMARATE 100 MG TABLET PO PRN (07:50)
[2017-03-27] MEDS: LORazepam 2 MG TABLET PO PRN (07:50)
[2017-03-27 08:00] VITALS: BP 113/67
[2017-03-27 11:58] LABS: GLUCOSE,POINT OF CARE 256 MG/DL (70-110)
[2017-03-27 16:05] VITALS: BP 115/78
[2017-03-27 17:28] LABS: GLUCOSE COMMENT 1 Received Meds; GLUCOSE,POINT OF CARE 222 MG/DL (70-110)
[2017-03-27] MEDS ORDERED: QUEtiapine FUMARATE 200 MG TABLET PO SCH (21:00)
[2017-03-27] MEDS: FENOFIBRATE 160 MG TABLET PO SCH (21:21)
[2017-03-27] MEDS: ATORVASTATIN CALCIUM 20 MG TABLET PO SCH (21:21)
[2017-03-27] MEDS: QUEtiapine FUMARATE 300 MG TABLET PO SCH (21:21)
[2017-03-27 21:58] LABS: GLUCOSE COMMENT 1 Received Meds; GLUCOSE,POINT OF CARE 205 MG/DL (70-110)
[2017-03-28 05:42] VITALS: BP 147/96
[2017-03-28 06:19] LABS: GLUCOSE,POINT OF CARE 217 MG/DL (70-110)
[2017-03-28] MEDS: INSULIN ASPART 100 UNITS/ML SQ PRN ×4 (06:52→22:00)
[2017-03-28] MEDS: MetFORMIN HCL 500 MG TABLET PO SCH ×2 (07:02→18:06)
[2017-03-28] MEDS: FERROUS SULFATE 325 MG EC TABLET PO SCH ×2 (07:02→18:06)
[2017-03-28 08:05] VITALS: BP 154/84
[2017-03-28 11:12] LABS: GLUCOSE,POINT OF CARE 202 MG/DL (70-110)
[2017-03-28 16:00] VITALS: BP 119/72
[2017-03-28] MEDS: QUEtiapine FUMARATE 300 MG TABLET PO SCH (20:28)
[2017-03-28] MEDS: FENOFIBRATE 160 MG TABLET PO SCH (20:28)
[2017-03-28] MEDS: ATORVASTATIN CALCIUM 20 MG TABLET PO SCH (20:28)
[2017-03-28 20:52] LABS: GLUCOSE COMMENT 1 FASTING; GLUCOSE,POINT OF CARE 275 MG/DL (70-110)
[2017-03-28 20:52] LABS: GLUCOSE COMMENT 1 FASTING; GLUCOSE,POINT OF CARE 247 MG/DL (70-110)
[2017-03-29 05:23] VITALS: BP 137/72
[2017-03-29 05:44] LABS: GLUCOSE,POINT OF CARE 225 MG/DL (70-110)
[2017-03-29] MEDS: FERROUS SULFATE 325 MG EC TABLET PO SCH ×2 (06:39→17:05)
[2017-03-29] MEDS: MetFORMIN HCL 500 MG TABLET PO SCH ×2 (06:39→17:05)
[2017-03-29] MEDS: INSULIN ASPART 100 UNITS/ML SQ PRN ×4 (07:09→22:37)
[2017-03-29 08:28] VITALS: BP 136/68
[2017-03-29] MEDS: LORazepam 2 MG TABLET PO PRN (08:36)
[2017-03-29] MEDS: QUEtiapine FUMARATE 100 MG TABLET PO PRN (09:10)
[2017-03-29 12:12] LABS: GLUCOSE,POINT OF CARE 174 MG/DL (70-110)
[2017-03-29 17:17] VITALS: BP 123/73
[2017-03-29 19:39] LABS: GLUCOSE COMMENT 1 FASTING; GLUCOSE,POINT OF CARE 272 MG/DL (70-110)
[2017-03-29] MEDS: FENOFIBRATE 160 MG TABLET PO SCH (21:50)
[2017-03-29] MEDS: ATORVASTATIN CALCIUM 20 MG TABLET PO SCH (21:50)
[2017-03-29] MEDS: QUEtiapine FUMARATE 200 MG TABLET PO SCH (21:51)
[2017-03-29 22:27] LABS: GLUCOSE COMMENT 1 FASTING; GLUCOSE,POINT OF CARE 171 MG/DL (70-110)
[2017-03-30] MEDS: MetFORMIN HCL 500 MG TABLET PO SCH ×2 (06:57→17:14)
[2017-03-30] MEDS: FERROUS SULFATE 325 MG EC TABLET PO SCH ×2 (06:57→17:14)
[2017-03-30] MEDS: INSULIN ASPART 100 UNITS/ML SQ PRN ×4 (07:00→20:27)
[2017-03-30 07:04] LABS: GLUCOSE,POINT OF CARE 187 MG/DL (70-110)
[2017-03-30 08:00] VITALS: BP 131/87
[2017-03-30] MEDS: QUEtiapine FUMARATE 100 MG TABLET PO PRN (08:08)
[2017-03-30 10:15] VITALS: BP 123/87
[2017-03-30] MEDS: LORazepam 2 MG TABLET PO PRN (12:12)
[2017-03-30 13:53] LABS: GLUCOSE COMMENT 1 Received Meds; GLUCOSE,POINT OF CARE 199 MG/DL (70-110)
[2017-03-30 16:52] LABS: GLUCOSE COMMENT 1 Received Meds; GLUCOSE,POINT OF CARE 299 MG/DL (70-110)
[2017-03-30 19:14] VITALS: BP 117/75
[2017-03-30] MEDS: ATORVASTATIN CALCIUM 20 MG TABLET PO SCH (20:02)
[2017-03-30] MEDS: FENOFIBRATE 160 MG TABLET PO SCH (20:02)
[2017-03-30] MEDS: QUEtiapine FUMARATE 200 MG TABLET PO SCH (20:02)
[2017-03-30 20:06] LABS: GLUCOSE COMMENT 1 Received Meds; GLUCOSE,POINT OF CARE 281 MG/DL (70-110)
[2017-03-30 21:30] VITALS: BP 116/68
[2017-03-30] MEDS: ClonazePAM 0.5 MG TABLET PO SCH (22:12)
[2017-03-31 05:52] LABS: GLUCOSE,POINT OF CARE 191 MG/DL (70-110)
[2017-03-31 05:58] VITALS: BP 128/87
[2017-03-31] MEDS: MetFORMIN HCL 500 MG TABLET PO SCH ×2 (06:35→17:01)
[2017-03-31] MEDS: FERROUS SULFATE 325 MG EC TABLET PO SCH ×2 (06:35→17:01)
[2017-03-31] MEDS: INSULIN ASPART 100 UNITS/ML SQ PRN ×4 (06:57→20:19)
[2017-03-31 08:48] VITALS: BP 114/87
[2017-03-31] MEDS: LORazepam 2 MG TABLET PO PRN (08:59)
[2017-03-31] MEDS: ClonazePAM 0.5 MG TABLET PO SCH ×2 (08:59→16:51)
[2017-03-31] MEDS ORDERED: ClonazePAM 0.5 MG TABLET PO SCH (09:00)
[2017-03-31] MEDS: QUEtiapine FUMARATE 100 MG TABLET PO PRN (09:02)
[2017-03-31 11:47] LABS: GLUCOSE,POINT OF CARE 175 MG/DL (70-110)
[2017-03-31 16:00] VITALS: BP 115/75
[2017-03-31 16:17] LABS: GLUCOSE COMMENT 1 Received Meds; GLUCOSE,POINT OF CARE 280 MG/DL (70-110)
[2017-03-31 16:19] VITALS: BP 115/75
[2017-03-31] MEDS: FENOFIBRATE 160 MG TABLET PO SCH (20:21)
[2017-03-31] MEDS: QUEtiapine FUMARATE 200 MG TABLET PO SCH (20:21)
[2017-03-31 20:22] LABS: GLUCOSE COMMENT 1 Received Meds; GLUCOSE,POINT OF CARE 324 MG/DL (70-110)
[2017-03-31] MEDS: ATORVASTATIN CALCIUM 20 MG TABLET PO SCH (20:22)
[2017-04-01 03:48] VITALS: BP 106/67
[2017-04-01 05:27] LABS: GLUCOSE,POINT OF CARE 230 MG/DL (70-110)
[2017-04-01] MEDS: INSULIN ASPART 100 UNITS/ML SQ PRN ×3 (06:47→17:37)
[2017-04-01] MEDS: FERROUS SULFATE 325 MG EC TABLET PO SCH ×2 (06:48→17:32)
[2017-04-01] MEDS: MetFORMIN HCL 500 MG TABLET PO SCH ×2 (06:48→17:32)
[2017-04-01] MEDS: QUEtiapine FUMARATE 100 MG TABLET PO PRN (09:02)
[2017-04-01] MEDS: ClonazePAM 0.5 MG TABLET PO SCH ×2 (09:02→16:25)
[2017-04-01] MEDS: LORazepam 2 MG TABLET PO PRN (09:02)
[2017-04-01 09:17] VITALS: BP 120/81
[2017-04-01 11:12] LABS: GLUCOSE,POINT OF CARE 201 MG/DL (70-110)
[2017-04-01 16:32] LABS: GLUCOSE,POINT OF CARE 222 MG/DL (70-110)
[2017-04-01 17:00] VITALS: BP 107/77
[2017-04-01] MEDS: FENOFIBRATE 160 MG TABLET PO SCH (21:51)
[2017-04-01] MEDS: ATORVASTATIN CALCIUM 20 MG TABLET PO SCH (21:51)
[2017-04-01] MEDS: QUEtiapine FUMARATE 200 MG TABLET PO SCH (21:51)
[2017-04-02 05:56] VITALS: BP 128/78
[2017-04-02] MEDS: FERROUS SULFATE 325 MG EC TABLET PO SCH ×2 (06:40→17:18)
[2017-04-02] MEDS: MetFORMIN HCL 500 MG TABLET PO SCH ×2 (06:40→17:18)
[2017-04-02] MEDS: INSULIN ASPART 100 UNITS/ML SQ PRN ×4 (06:41→20:36)
[2017-04-02 07:12] LABS: GLUCOSE,POINT OF CARE 238 MG/DL (70-110)
[2017-04-02] MEDS: ClonazePAM 0.5 MG TABLET PO SCH ×2 (08:04→17:18)
[2017-04-02 08:40] VITALS: BP 123/86
[2017-04-02 11:37] LABS: GLUCOSE,POINT OF CARE 206 MG/DL (70-110)
[2017-04-02] MEDS: LOPERAMIDE HCL 2 MG CAPSULE PO PRN (11:46)
[2017-04-02 16:29] VITALS: BP 112/76
[2017-04-02 17:42] LABS: GLUCOSE COMMENT 1 Received Meds; GLUCOSE,POINT OF CARE 372 MG/DL (70-110)
[2017-04-02] MEDS: QUEtiapine FUMARATE 200 MG TABLET PO SCH (20:56)
[2017-04-02] MEDS: FENOFIBRATE 160 MG TABLET PO SCH (20:56)
[2017-04-02] MEDS: ATORVASTATIN CALCIUM 20 MG TABLET PO SCH (20:56)
[2017-04-02 21:22] LABS: GLUCOSE,POINT OF CARE 340 MG/DL (70-110)
[2017-04-03 05:19] VITALS: BP 112/73
[2017-04-03 06:36] LABS: GLUCOSE,POINT OF CARE 276 MG/DL (70-110)
[2017-04-03] MEDS: MetFORMIN HCL 500 MG TABLET PO SCH ×2 (06:41→16:46)
[2017-04-03] MEDS: FERROUS SULFATE 325 MG EC TABLET PO SCH ×2 (06:41→16:46)
[2017-04-03] MEDS: QUEtiapine FUMARATE 25 MG TABLET PO SCH ×2 (06:41→11:54)
[2017-04-03 09:00] VITALS: BP 112/77
[2017-04-03] MEDS: QUEtiapine FUMARATE 100 MG TABLET PO PRN (09:13)
[2017-04-03] MEDS: LORazepam 2 MG TABLET PO PRN (09:13)
[2017-04-03] MEDS: ClonazePAM 0.5 MG TABLET PO SCH ×2 (09:14→16:46)
[2017-04-03 11:52] LABS: GLUCOSE,POINT OF CARE 293 MG/DL (70-110)
[2017-04-03] MEDS: INSULIN ASPART 100 UNITS/ML SQ PRN ×3 (12:06→21:23)
[2017-04-03] MEDS: LOPERAMIDE HCL 2 MG CAPSULE PO PRN (13:49)
[2017-04-03 16:14] VITALS: BP 112/74
[2017-04-03 16:57] LABS: GLUCOSE COMMENT 1 Received Meds; GLUCOSE,POINT OF CARE 242 MG/DL (70-110)
[2017-04-03 20:27] LABS: GLUCOSE COMMENT 1 Received Meds; GLUCOSE,POINT OF CARE 235 MG/DL (70-110)
[2017-04-03] MEDS: ATORVASTATIN CALCIUM 20 MG TABLET PO SCH (20:31)
[2017-04-03] MEDS: QUEtiapine FUMARATE 200 MG TABLET PO SCH (20:31)
[2017-04-03] MEDS: FENOFIBRATE 160 MG TABLET PO SCH (20:32)
[2017-04-04 05:44] VITALS: BP 118/77
[2017-04-04 06:32] LABS: GLUCOSE COMMENT 1 Received Meds; GLUCOSE,POINT OF CARE 227 MG/DL (70-110)
[2017-04-04] MEDS: QUEtiapine FUMARATE 25 MG TABLET PO SCH ×2 (06:43→12:52)
[2017-04-04] MEDS: FERROUS SULFATE 325 MG EC TABLET PO SCH ×2 (06:56→17:28)
[2017-04-04] MEDS: MetFORMIN HCL 500 MG TABLET PO SCH ×2 (06:56→17:28)
[2017-04-04] MEDS: INSULIN ASPART 100 UNITS/ML SQ PRN ×3 (06:56→17:48)
[2017-04-04 08:30] VITALS: BP 112/73
[2017-04-04] MEDS: ClonazePAM 0.5 MG TABLET PO SCH ×3 (09:07→21:17)
[2017-04-04 11:37] LABS: GLUCOSE,POINT OF CARE 273 MG/DL (70-110)
[2017-04-04] MEDS ORDERED: CLON.5 PO (13:19)
[2017-04-04 16:58] VITALS: BP 119/76
[2017-04-04 17:38] LABS: GLUCOSE COMMENT 1 Received Meds; GLUCOSE,POINT OF CARE 263 MG/DL (70-110)
[2017-04-04] MEDS: ATORVASTATIN CALCIUM 20 MG TABLET PO SCH (21:15)
[2017-04-04] MEDS: FENOFIBRATE 160 MG TABLET PO SCH (21:15)
[2017-04-04] MEDS: QUEtiapine FUMARATE 200 MG TABLET PO SCH (21:17)
[2017-04-04] MEDS: ZOLPIDEM TARTRATE 10 MG TABLET PO PRN (23:22)
[2017-04-05 00:10] VITALS: BP 116/71
[2017-04-05 06:22] LABS: GLUCOSE,POINT OF CARE 218 MG/DL (70-110)
[2017-04-05] MEDS: QUEtiapine FUMARATE 25 MG TABLET PO SCH ×2 (06:39→12:34)
[2017-04-05] MEDS: FERROUS SULFATE 325 MG EC TABLET PO SCH ×2 (06:39→17:21)
[2017-04-05] MEDS: MetFORMIN HCL 500 MG TABLET PO SCH ×2 (06:41→17:21)
[2017-04-05] MEDS: INSULIN ASPART 100 UNITS/ML SQ PRN ×4 (06:42→20:21)
[2017-04-05] MEDS: ClonazePAM 0.5 MG TABLET PO SCH ×3 (08:06→20:17)
[2017-04-05 08:07] VITALS: BP 106/65
[2017-04-05] MEDS: ATENOLOL 50 MG TABLET PO SCH (08:11)
[2017-04-05] MEDS ORDERED: ATENOLOL 25 MG TABLET PO SCH (09:00)
[2017-04-05 11:12] LABS: GLUCOSE,POINT OF CARE 315 MG/DL (70-110)
[2017-04-05 12:00] VITALS: BP 110/72
[2017-04-05] MEDS: LOPERAMIDE HCL 2 MG CAPSULE PO PRN (12:55)
[2017-04-05 16:11] VITALS: BP 124/77
[2017-04-05 16:32] LABS: GLUCOSE COMMENT 1 Received Meds; GLUCOSE,POINT OF CARE 277 MG/DL (70-110)
[2017-04-05 20:12] VITALS: BP 122/78
[2017-04-05] MEDS: ATORVASTATIN CALCIUM 20 MG TABLET PO SCH (20:16)
[2017-04-05] MEDS: QUEtiapine FUMARATE 200 MG TABLET PO SCH (20:16)
[2017-04-05] MEDS: FENOFIBRATE 160 MG TABLET PO SCH (20:17)
[2017-04-05 20:27] LABS: GLUCOSE COMMENT 1 Received Meds; GLUCOSE,POINT OF CARE 263 MG/DL (70-110)
[2017-04-06] VITALS (8 sets, daily range): BP systolic 82–115; BP diastolic 56–78
[2017-04-06 05:57] LABS: GLUCOSE COMMENT 1 Received Meds; GLUCOSE,POINT OF CARE 199 MG/DL (70-110)
[2017-04-06] MEDS: MetFORMIN HCL 500 MG TABLET PO SCH ×2 (07:03→16:55)
[2017-04-06] MEDS: QUEtiapine FUMARATE 25 MG TABLET PO SCH ×2 (07:03→12:15)
[2017-04-06] MEDS: FERROUS SULFATE 325 MG EC TABLET PO SCH ×2 (07:03→16:55)
[2017-04-06] MEDS: INSULIN ASPART 100 UNITS/ML SQ PRN ×4 (07:05→21:41)
[2017-04-06 07:08] LABS: HEMATOCRIT 34.7 % (36-46); HEMOGLOBIN 11.7 g/dL (12.0-16.0); MEAN CORPUSCULAR HEMOGLOBIN 28.4 pg (26.0-34.0); MEAN CORPUSCULAR HGB CONC 33.7 G/dL (31.0-37.0); MEAN CORPUSCULAR VOLUME 84 fL (80-100); PLATELET COUNT (AUTO) 278 K/uL (150-450); RED BLOOD CELL COUNT(AUTO) 4.11 MIL/uL (4.00-5.20); RED CELL DISTRIBUTION WIDTH 12.9 % (11.5-14.5); WHITE BLOOD COUNT (AUTO) 7.7 K/uL (4.5-11.0)
[2017-04-06] MEDS: QUEtiapine FUMARATE 100 MG TABLET PO PRN (07:13)
[2017-04-06] MEDS: ClonazePAM 0.5 MG TABLET PO SCH ×3 (07:13→20:24)
[2017-04-06] MEDS: LORazepam 2 MG TABLET PO PRN (07:13)
[2017-04-06] MEDS: LOPERAMIDE HCL 2 MG CAPSULE PO PRN (07:13)
[2017-04-06] MEDS: ATENOLOL 50 MG TABLET PO SCH (07:14)
[2017-04-06 07:36] LABS: ANION GAP 9 mmol/L (8-16); CALCIUM, TOTAL 8.9 mg/dL (8.8-10.5); CARBON DIOXIDE 27 mmol/L (22-29); CHLORIDE 100 mmol/L (98-107); CREATININE 0.72 mg/dL (0.60-1.30); GLOMERULAR FILTR. RATE CALC > 60 mL/min (>60); PHOSPHORUS 3.7 mg/dL (2.5-4.9); SODIUM SERUM 136 mmol/L (136-145); UREA NITROGEN, BLOOD 10 mg/dL (7-18)
[2017-04-06 07:41] LABS: HEMOGLOBIN A1C 10.5 % (4.5-6.2)
[2017-04-06 10:23] LABS: BAND NEUTROPHILS % (MANUAL) 2 % (1-5); LYMPHOCYTES % (MANUAL) 32 % (22-44); RBC MORPHOLOGY COMMENT NORMAL RBC MORPH; TOTAL CELLS COUNTED 100
[2017-04-06 11:33] LABS: GLUCOSE,POINT OF CARE 184 MG/DL (70-110)
[2017-04-06 17:07] LABS: GLUCOSE COMMENT 1 FASTING; GLUCOSE,POINT OF CARE 310 MG/DL (70-110)
[2017-04-06] MEDS ORDERED: QUET25TA PO (19:11)
[2017-04-06] MEDS: FENOFIBRATE 160 MG TABLET PO SCH (20:24)
[2017-04-06] MEDS: QUEtiapine FUMARATE 200 MG TABLET PO SCH (20:24)
[2017-04-06] MEDS: ATORVASTATIN CALCIUM 20 MG TABLET PO SCH (20:24)
[2017-04-06 20:32] LABS: GLUCOSE COMMENT 1 FASTING; GLUCOSE,POINT OF CARE 303 MG/DL (70-110)
[2017-04-07 06:12] LABS: GLUCOSE COMMENT 1 Received Meds; GLUCOSE,POINT OF CARE 198 MG/DL (70-110)
[2017-04-07 06:25] VITALS: BP 110/64
[2017-04-07] MEDS: QUEtiapine FUMARATE 25 MG TABLET PO SCH ×2 (06:54→12:20)
[2017-04-07] MEDS: MetFORMIN HCL 500 MG TABLET PO SCH ×2 (07:01→17:01)
[2017-04-07] MEDS: FERROUS SULFATE 325 MG EC TABLET PO SCH ×2 (07:01→17:00)
[2017-04-07] MEDS: INSULIN ASPART 100 UNITS/ML SQ PRN ×4 (07:03→21:45)
[2017-04-07 08:00] VITALS: BP 107/72
[2017-04-07] MEDS: ClonazePAM 0.5 MG TABLET PO SCH ×3 (08:11→20:58)
[2017-04-07] MEDS: ATENOLOL 25 MG TABLET PO SCH (08:11)
[2017-04-07] MEDS: MAGNESIUM OXIDE 400 MG TABLET PO SCH ×2 (08:12→17:00)
[2017-04-07] MEDS: QUEtiapine FUMARATE 100 MG TABLET PO PRN (08:12)
[2017-04-07 11:27] LABS: GLUCOSE,POINT OF CARE 199 MG/DL (70-110)
[2017-04-07 12:00] VITALS: BP 116/74
[2017-04-07 16:04] VITALS: BP 113/74
[2017-04-07 17:02] LABS: GLUCOSE COMMENT 1 Received Meds; GLUCOSE,POINT OF CARE 343 MG/DL (70-110)
[2017-04-07 20:00] VITALS: BP 117/78
[2017-04-07] MEDS: QUEtiapine FUMARATE 200 MG TABLET PO SCH (20:58)
[2017-04-07] MEDS: ATORVASTATIN CALCIUM 20 MG TABLET PO SCH (20:58)
[2017-04-07] MEDS: FENOFIBRATE 160 MG TABLET PO SCH (20:58)
[2017-04-07 21:07] LABS: GLUCOSE COMMENT 1 FASTING; GLUCOSE,POINT OF CARE 274 MG/DL (70-110)
[2017-04-08 06:08] LABS: GLUCOSE,POINT OF CARE 237 MG/DL (70-110)
[2017-04-08] MEDS: QUEtiapine FUMARATE 25 MG TABLET PO SCH ×2 (06:34→12:36)
[2017-04-08] MEDS: MetFORMIN HCL 500 MG TABLET PO SCH ×2 (06:34→17:27)
[2017-04-08] MEDS: FERROUS SULFATE 325 MG EC TABLET PO SCH ×2 (06:34→17:21)
[2017-04-08] MEDS: INSULIN ASPART 100 UNITS/ML SQ PRN ×3 (06:39→23:39)
[2017-04-08] MEDS: MAGNESIUM OXIDE 400 MG TABLET PO SCH ×2 (08:06→17:25)
[2017-04-08] MEDS: ClonazePAM 0.5 MG TABLET PO SCH ×3 (08:07→20:19)
[2017-04-08] MEDS: ATENOLOL 25 MG TABLET PO SCH (08:08)
[2017-04-08] MEDS: LORazepam 2 MG TABLET PO PRN (08:09)
[2017-04-08 08:30] VITALS: BP 109/79
[2017-04-08 11:33] LABS: GLUCOSE,POINT OF CARE 294 MG/DL (70-110)
[2017-04-08 16:28] VITALS: BP 102/71
[2017-04-08] MEDS ORDERED: CLON.5 PO ×2 (19:46)
[2017-04-08] MEDS ORDERED: QUET25TA PO ×2 (19:50)
[2017-04-08 20:01] VITALS: BP 114/76
[2017-04-08] MEDS: FENOFIBRATE 160 MG TABLET PO SCH (20:18)
[2017-04-08] MEDS: ATORVASTATIN CALCIUM 20 MG TABLET PO SCH (20:19)
[2017-04-08] MEDS: QUEtiapine FUMARATE 200 MG TABLET PO SCH (20:19)
[2017-04-08 21:42] LABS: GLUCOSE,POINT OF CARE 301 MG/DL (70-110)
[2017-04-08 21:42] LABS: GLUCOSE,POINT OF CARE 208 MG/DL (70-110)
[2017-04-09 05:58] LABS: GLUCOSE,POINT OF CARE 288 MG/DL (70-110)
[2017-04-09] MEDS: QUEtiapine FUMARATE 25 MG TABLET PO SCH ×2 (06:58→12:04)
[2017-04-09] MEDS: FERROUS SULFATE 325 MG EC TABLET PO SCH (06:58)
[2017-04-09] MEDS: MetFORMIN HCL 500 MG TABLET PO SCH (06:59)
[2017-04-09] MEDS: INSULIN ASPART 100 UNITS/ML SQ PRN ×2 (07:07→11:14)
[2017-04-09] MEDS: ClonazePAM 0.5 MG TABLET PO SCH (08:34)
[2017-04-09] MEDS: MAGNESIUM OXIDE 400 MG TABLET PO SCH (08:35)
[2017-04-09] MEDS: ATENOLOL 25 MG TABLET PO SCH (08:35)
[2017-04-09 08:44] VITALS: BP 100/68
[2017-04-09] MEDS ORDERED: FERR-89 PO (09:59)
[2017-04-09] MEDS ORDERED: ATEN25 PO (10:11)
[2017-04-09 11:17] LABS: GLUCOSE COMMENT 1 Received Meds; GLUCOSE,POINT OF CARE 226 MG/DL (70-110)
[2017-04-09 12:00] VITALS: BP 100/58
== END 2017-04-09 15:15 | disposition home or self-care (01) | DRG 750 ==
LOC: 3EC 00:30
PROVIDERS: ADMIT Psychiatry & Neurology Psychiatry; ATTEND Psychiatry & Neurology Psychiatry
DX: F25.0 Schizoaffective disorder, bipolar type (principal); R45.851 Suicidal ideations; E11.65 Type 2 diabetes mellitus with hyperglycemia; E87.1 Hypo-osmolality and hyponatremia; E89.0 Postprocedural hypothyroidism; E83.42 Hypomagnesemia; E78.5 Hyperlipidemia, unspecified; E78.1 Pure hyperglyceridemia; E55.9 Vitamin D deficiency, unspecified; K21.9 Gastro-esophageal reflux disease without esophagitis; K59.00 Constipation, unspecified; L30.9 Dermatitis, unspecified; F79 Unspecified intellectual disabilities; G47.00 Insomnia, unspecified; R19.7 Diarrhea, unspecified; D64.9 Anemia, unspecified; E58 Dietary calcium deficiency; R00.0 Tachycardia, unspecified; J98.4 Other disorders of lung; Z63.8 Other specified problems related to primary support group; Z28.21 Immunization not carried out because of patient refusal; Z79.899 Other long term (current) drug therapy; Z88.5 Allergy status to narcotic agent; Z91.14 Patient's other noncompliance with medication regimen; Z91.19 Patient's noncompliance with other medical treatment and regimen
CPT/HCPCS: 82306; 82962; 83036; 83735; 84100; 84443; 85007; 87081; 87324; 87449; 97110; 97112; 97116; 97161